=== PATIENT | female | born 1975 | race African-American/Black ===

== ENCOUNTER 2021-09-15 20:03 | Emergency (ER) | payer BC, SELFPAY ==
[2021-09-15] MEDS ORDERED: Clindamycin 150 MG CAP ONE (23:09)
[2021-09-15] MEDS ORDERED: Clindamycin 150 MG CAP PO SCH (23:15)
== END 2021-09-15 23:11 | disposition home or self-care (01) ==
LOC: CSHERS 20:03
DX: L03.116 Cellulitis of left lower limb (principal); L02.422 Furuncle of left axilla; I10 Essential (primary) hypertension; Z79.899 Other long term (current) drug therapy
CPT/HCPCS: 99283